=== PATIENT | male | born 1950 | race Caucasian/White ===

== ENCOUNTER 2016-12-23 04:01 | Inpatient (IN) | payer OTHER ==
[2016-12-17 11:34] LABS: HEMATOCRIT 42.8 % (42.0-52.0); HEMOGLOBIN 14.4 g/dL (14.0-18.0); MCH 29.6 PG (27-31); MCHC 33.6 g/dL (33-37); MCV 87.9 FL (81-99); MPV 10.2 FL (7.4-10.4); RBC 4.87 XMIL (4.7-6.1)
[2016-12-17 11:53] LABS: AGAP 14; BUN 18 mg/dL (8-22); CALCIUM 10.1 mg/dL (8.8-10.2); CHLORIDE 99 mmol/L (98-107); COSMO 283; POTASSIUM 4.3 mmol/L (3.5-5.1); SODIUM 141 mmol/L (136-145); TCO2 28 mmol/L (25-35)
--- NOTE | 2016-12-17 13:38 | EKG Report ---
Test Performed on : 12/17/2016 11:15:16 AM Test Reason : PAT Blood Pressure : / mmHG Vent. Rate : 076 BPM Atrial Rate : 076 BPM P-R Int : 152 ms QRS Dur : 096 ms QT Int : 396 ms P-R-T Axes : 081 039 062 degrees QTc Int : 445 ms Normal sinus rhythm. Normal ECG No previous ECGs available Confirmed by Crow Qiu MD ([id number]) on 12/17/2016 9:57:10 PM
[2016-12-23] MEDS ORDERED: LR 1,000 ML ONE ×2 (05:27→06:26)
[2016-12-23] MEDS ORDERED: REGLAN ONE (05:27)
[2016-12-23] MEDS ORDERED: PEPCID ONE (05:27)
[2016-12-23] MEDS ORDERED: KEFZOL 2 GM/D5W 50 ML ONE (05:28)
[2016-12-23 08:27] LABS: URINE MICRO REVIEW NEEDED? NO; URINE SOURCE CATH
[2016-12-23 08:31] LABS: BILIRUBIN URINE NEGATIVE (NEGATIVE); BLOOD URINE NEGATIVE (NEGATIVE); COLOR YELLOW; GLUCOSE URINE NEGATIVE (NEGATIVE); LEUKOCYTES URINE NEGATIVE (NEGATIVE); NITRITE URINE NEGATIVE (NEGATIVE); PROTEIN URINE 30 mg/dL (NEGATIVE); SP GRAVITY URINE 1.025; TURBIDITY URINE CLEAR (CLEAR); UROBILINOGEN URINE NORMAL (NORMAL)
[2016-12-23 08:32] LABS: UR EPITHELIAL CELLS <10 /HPF (<10); URINE BACTERIA NEGATIVE /HPF; URINE RBC <10 /HPF (<10); URINE WBC <10 /HPF (<10)
[2016-12-23] MEDS: B & O 16A SUPP ONE ×2 (10:17)
[2016-12-23] MEDS: MARCAINE 0.25% PF/EPI 1:200,000 ONE ×2 (10:17)
[2016-12-23] MEDS ORDERED: NS 1,000 ML ONE (10:36)
[2016-12-23] MEDS ORDERED: DILAUDID ONE (10:46)
[2016-12-23] MEDS ORDERED: FENTANYL ONE (10:49)
[2016-12-23] MEDS ORDERED: DIPRIVAN 1% ONE (10:50)
[2016-12-23] MEDS ORDERED: VERSED ONE (10:50)
[2016-12-23] MEDS ORDERED: LUBRIFRESH PM OPH OINTMENT ONE (10:55)
[2016-12-23] MEDS ORDERED: NEOSTIGMINE ONE (10:55)
[2016-12-23] MEDS ORDERED: EPHEDRINE ONE (10:56)
[2016-12-23] MEDS ORDERED: NORCURON ONE (10:56)
[2016-12-23] MEDS ORDERED: ZOFRAN ONE (10:56)
[2016-12-23] MEDS ORDERED: ROBINUL ONE (10:56)
[2016-12-23] MEDS ORDERED: XYLOCAINE-MPF 2% ONE (10:56)
[2016-12-23] MEDS ORDERED: NEO-SYNEPHRINE ONE (10:56)
[2016-12-23] MEDS ORDERED: SODIUM CHLORIDE 0.9% 50 ML ONE (10:56)
[2016-12-23] MEDS ORDERED: OFIRMEV 1000 MG/ISOTONIC SOLN 100 ML ONE (10:57)
[2016-12-23] MEDS ORDERED: QUELICIN (DOSE) ONE (10:57)
[2016-12-23] MEDS ORDERED: DECADRON ONE (10:58)
[2016-12-23] MEDS ORDERED: LR 2,000 ML ONE (10:58)
[2016-12-23] MEDS ORDERED: BENADRYL IV PRN ×2 (11:53→12:07)
[2016-12-23] MEDS ORDERED: LABETALOL IV PRN ×2 (11:53→12:07)
[2016-12-23] MEDS ORDERED: TYLENOL PO PRN (11:53)
[2016-12-23] MEDS ORDERED: MORPHINE IV PRN ×2 (11:53→12:07)
[2016-12-23] MEDS ORDERED: NORCO-7.5 PO PRN (11:53)
[2016-12-23] MEDS ORDERED: BENADRYL LIQUID PO PRN ×2 (11:53→12:07)
[2016-12-23] MEDS ORDERED: B & O 15A SUPP PR PRN (11:53)
[2016-12-23] MEDS ORDERED: DITROPAN PO PRN ×2 (11:53→12:07)
[2016-12-23] MEDS ORDERED: PHENERGAN PO PRN (12:07)
[2016-12-23] MEDS ORDERED: PHENERGAN IV PRN (12:07)
[2016-12-23] MEDS ORDERED: PHENERGAN PR PRN (12:07)
[2016-12-23] MEDS ORDERED: SODIUM CHLORIDE 0.9% INJ PRN (12:07)
--- NOTE | 2016-12-23 12:36 | OPERATIVE NOTE ---
PROCEDURE DATE: 12/23/2016 PREOPERATIVE DIAGNOSIS: Prostate cancer. POSTOPERATIVE DIAGNOSIS: Prostate cancer. PROCEDURE PERFORMED: Laparoscopic robot-assisted radical retropubic prostatectomy. SURGEON: Herb Jeronimo MD ANESTHESIA: General endotracheal. FINDINGS: Normal-appearing prostate with attached vas deferens and seminal vesicles. INDICATIONS FOR PROCEDURE: This 65-year-old male has a history of elevated PSA. Transrectal prostate ultrasound and biopsies revealed adenocarcinoma, Lori grade 3 + 3, in the right base and mid and left base of the prostate. Various treatments for prostate cancer were discussed with the patient and he decided on radical surgery. DESCRIPTION OF PROCEDURE: After informed consent was obtained from the patient and him receiving IV antibiotics, he was taken to the main OR and placed in low lithotomy position. General endotracheal anesthesia was achieved. He was then prepped and draped in the usual sterile fashion for abdominal, penile, and perineal surgery. An 18-Indonesian Rodríguez catheter was passed through the patient's urethra and prostate into the bladder without difficulty. A total of 10 mL of sterile water was placed in the Rodríguez balloon. The Rodríguez was placed to gravity drain. An incision about 15 mm in length was made right above the umbilicus in the midline. The Veress needle was passed through this incision into the peritoneal cavity. A water drop test was good and pneumoperitoneum was achieved. After 15 cm of water was achieved, the Veress needle was removed and a Visiport was used to place a 12 mm camera port. After the port was placed, a camera was placed and the abdomen was inspected and there were physiologic adhesions of the left sigmoid colon, otherwise no adhesions, the robot trocars were placed in their standard position with the 4th arm just above the anterior superior iliac spine. The assistant director of public works port was placed to the left of the camera in the left epigastric area. The patient was then placed in steep Trendelenburg and the cat and the table lowered as far as it would go. The robot was docked. The procedure was started by taking down the physiologic adhesions. The 4th arm was then used to hold the sigmoid colon cephalad. An incision was made in the peritoneum as it reflected off of the colon. This was taken down to the vas deferens and ampulla of the vas along both sides. The ampulla of the vas was dissected free and incised just at the tip of the seminal vesicles. The seminal vesicle was dissected both bluntly and sharply. The pedicle was taken down with a clip. Denonvilliers fascia was entered in the midline at the base of the prostate just below the ampulla vas deferens. This area was dissected laterally for a short distance on either side. Attention was then turned to the anterior abdominal wall, where an incision was made in the peritoneum medial to the internal inguinal ring. This was taken down into the pelvis to the vas deferens and up onto the anterior abdominal wall. Both sides were accomplished similarly. The umbilical ligaments were taken down with electrocautery. The bladder was bluntly and sharply dissected off the anterior abdominal wall. The fibrofatty tissue off the anterior and lateral sides of the prostate were removed. The endopelvic fascia was entered just lateral to the prostate and the incision was taken up to the puboprostatic ligaments distally and back to the base of the prostate. The levator ani muscles were pushed off the sides of the prostate. The puboprostatic ligament was taken down. Both sides were accomplished similarly. The dorsal vein complex was secured with a 2-0 V-Loc suture, going under the dorsal vein complex, through the eye of the tail of the suture, back under the dorsal vein complex, through the periosteum of the pubis, back under the dorsal vein complex, and then back through the periosteum of the pubis. Attention was then turned to the base of the prostate. The bladder was incised using electrocautery at the base of the prostate and sharply dissected off the base. This was taken down to the urethra. The anterior portion was incised. The Rodríguez catheter was visualized and pulled back. The bladder neck was preserved as much as possible. The posterior bladder neck area was incised using electrocautery, and the remaining portion of the bladder was sharply dissected off the base of the prostate. This was taken down to the previously dissected space at the location of the seminal vesicles and ampulla of the vas deferens. This was entered. The ampulla of the vas and seminal vesicles were then brought up through this incision and the incision was extended laterally to each pedicle. The prostate pedicles were taken down with clips and the prostate was dissected down to the apex of the prostate, staying above the neurovascular bundle on both sides. The dorsal vein complex was cauterized over the apex of the prostate and incised. The urethra was exposed and incised. The Rodríguez catheter was pulled back and the posterior urethra was incised and the remaining fibers of the posterior rhabdosphincter were incised. This completely freed the prostate and it was placed in an EndoCatch retrieval bag. The pelvic area was irrigated. The pneumoperitoneum was dropped to 2 cm of water. No bleeding areas were seen. The vesicovisceral fascia was reattached to the posterior rhabdosphincter using a running suture of 3-0 V-Loc suture. The bladder was anastomosed to the urethra with a running suture of 3 V-Loc suture. At completion, the Rodríguez catheter easily advanced into the bladder and the bladder was distended to 120 mL and irrigated without difficulty. No leaking areas were seen. The previously placed sutures that anastomosed the vesicovisceral fascia to the posterior rhabdosphincter were used on either side. To go through the periosteum to act as a urethral suspension. The needles were removed from the sutures and removed from the body. Needle count was correct. The pneumoperitoneum was resolved and the robot trocars were removed under direct vision after bringing the EndoCatch bag retrieval string through the camera port. The robot was then undocked and the patient was then brought back up to the supine position. The camera port incision was extended for another centimeter. Bovie electrocautery was used to incise the subcutaneous tissue and abdominal rectus fascia. The prostate was brought out of the wound and sent to Pathology. The abdominal rectus fascia was reapproximated with interrupted sutures of #1 Maxon. The skin was reapproximated with clips. The wounds were dressed with island dressings. He tolerated the procedure well. The estimated blood loss was 25 mL. He was taken to the recovery room in good condition, extubated.
[2016-12-23] MEDS: OFIRMEV 1000 MG/ISOTONIC SOLN 100 ML IV SCH ×2 (15:23→21:12)
[2016-12-23] MEDS: NS 1,000 ML IV SCH ×2 (15:24→21:40)
[2016-12-23] MEDS: KEFZOL 1 GM/D5W 50 ML IV SCH ×3 (15:24→23:40)
[2016-12-23] MEDS ORDERED: AMBIEN PO ONE (20:58)
[2016-12-23] MEDS ORDERED: PRAVACHOL PO SCH (21:00)
[2016-12-23] MEDS ORDERED: PERIDEX MT SCH (21:00)
[2016-12-23] MEDS ORDERED: COLACE PO SCH ×2 (21:00)
[2016-12-23] MEDS ORDERED: PEPCID PO SCH (21:00)
[2016-12-24] MEDS ORDERED: OXY IR PO PRN (03:19)
[2016-12-24] MEDS ORDERED: MILK OF MAGNESIA PO ONE (03:19)
[2016-12-24] MEDS: OFIRMEV 1000 MG/ISOTONIC SOLN 100 ML IV SCH (03:25)
[2016-12-24] MEDS: NS 1,000 ML IV SCH (05:43)
[2016-12-24 05:51] LABS: HEMOGLOBIN 12.8 g/dL (14.0-18.0); MCH 29.5 PG (27-31); MCHC 32.8 g/dL (33-37); MCV 89.9 FL (81-99); RBC 4.34 XMIL (4.7-6.1)
[2016-12-24 06:06] LABS: AGAP 12; BUN 16 mg/dL (8-22); CALCIUM 8.9 mg/dL (8.8-10.2); CHLORIDE 100 mmol/L (98-107); COSMO 281; POTASSIUM 4.1 mmol/L (3.5-5.1); SODIUM 140 mmol/L (136-145); TCO2 28 mmol/L (25-35)
[2016-12-24 08:26] VITALS: BP 162/67
[2016-12-24] MEDS ORDERED: MONOPRIL PO SCH (09:00)
== END 2016-12-24 09:10 | disposition home or self-care (01) | DRG 708 ==
LOC: SURHOLD 04:01 → 4N 10:41
PROVIDERS: ADMIT Urology; ATTEND Urology
PROC: 8E0W4CZ Robotic Assisted Procedure of Trunk Region, Percutaneous Endoscopic Approach (ICD-10-PCS; 2016-12-23)
PROC: 0VBQ4ZZ Excision of Bilateral Vas Deferens, Percutaneous Endoscopic Approach (ICD-10-PCS; 2016-12-23)
PROC: 0VT04ZZ Resection of Prostate, Percutaneous Endoscopic Approach (ICD-10-PCS; principal; 2016-12-23 06:55)
PROC: 0VT34ZZ Resection of Bilateral Seminal Vesicles, Percutaneous Endoscopic Approach (ICD-10-PCS; 2016-12-23 06:55)
DX: C61 Malignant neoplasm of prostate (principal); I10 Essential (primary) hypertension; N40.0 Benign prostatic hyperplasia without lower urinary tract symptoms; Z79.899 Other long term (current) drug therapy; Z87.891 Personal history of nicotine dependence
CPT/HCPCS: 80048; 81001; 85027; 86850; 86900; 86901; 88309; 93005; 93010; 94761; J0131; J0330; J0690; J1100; J1170; J2250; J2370; J2405; J3010; J7030; J7120; J2710; S0020

== ENCOUNTER 2019-04-19 10:37 | Inpatient (IN) ==
[2019-04-19] MEDS ORDERED: CARDIZEM IV ONE (10:54)
[2019-04-19 11:32] LABS: BASO# 0.03 X1000 (0.0-0.2); BASO% 0.5 % (0.0-0.8); EOS# 0.06 X1000 (0.0-0.7); HEMATOCRIT 40.9 % (42.0-52.0); HEMOGLOBIN 14.1 g/dL (14.0-18.0); LYMPH# 1.36 X1000 (1.2-3.4); LYMPH% 22.7 % (20.5-51.1); MCHC 34.5 g/dL (33-37); MCV 84.2 FL (81-99); MONO# 0.67 X1000 (0.11-0.59); MONO% 11.2 % (1.7-9.3); MPV 10.6 FL (7.4-10.4); NEUT# 3.88 X1000 (1.4-6.5); NEUT% 64.6 % (42.2-75.2); PLT 190 X1000 (130-400); RBC 4.86 XMIL (4.7-6.1); RDW 13.7 % (11.5-14.5)
[2019-04-19 11:54] LABS: AGAP 11; ALB/GLOB RATIO 1.7; ALBUMIN 4.1 g/dL (3.5-5.0); ALKALINE PHOSPHATASE 58 U/L (32-122); BUN 15 mg/dL (8-22); CALCIUM 9.5 mg/dL (8.8-10.2); CHLORIDE 103 mmol/L (98-107); COSMO 281; ESTIMATED GFR > 60; GLUCOSE 139 mg/dL (70-104); GOT 34 U/L (10-34); GPT 36 U/L (10-44); SODIUM 139 mmol/L (136-145); TCO2 25 mmol/L (25-35); TOTAL BILIRUBIN 0.52 mg/dL (0.20-1.00); TOTAL PROTEIN 6.5 g/dL (6.3-8.3)
[2019-04-19 12:01] LABS: CK PROFILE 264 U/L (24-204)
[2019-04-19 12:29] LABS: CK INDEX 1.7 (0.0-2.5); CK-MB 4.51 ng/mL (0.0-5.0)
[2019-04-19 12:53] LABS: URINE SOURCE CLEAN CATCH
[2019-04-19] MEDS ORDERED: CARDIZEM 125 MG/D5W 125 MG/125 ML IVPB IV SCH (12:55)
--- NOTE | 2019-04-19 12:55 | PROVIDER DOCUMENTATION ---
This chart was entered by Jeannette Miramontes Scribe, acting as scribe for Hodan Mosher MD. HPI-Cardiac General - General Chief Complaint: Palpitations Stated Complaint: HEART RACING Time Seen by Provider: 04/19/19 10:43 Source: patient Allergies/Adverse Reactions: Patient Allergies Allergy/AdvReac Type Severity Reaction Status Date / Time No Known Allergies Allergy Verified 12/09/17 14:02 Home Medications: Home Medication List Medication Instructions Recorded Confirmed Last Taken Type FOSINOpril [Monopril] 40 mg PO BID 12/17/16 04/19/19 04/19/19 08:00 History 40 MG PRAVAstatin [Pravachol] 80 mg PO QHS 01/28/17 04/19/19 04/18/19 21:00 History 80 MG Amiodarone [Cordarone] 200 mg PO BID #60 tab 04/21/19 Unknown Rx Apixaban [Eliquis] 5 mg PO BID #60 tab 04/21/19 Unknown Rx Metoprolol [Lopressor] 100 mg PO BID #60 tab 04/21/19 Unknown Rx - History of Present Illness-Cardiac Nature of Presenting Problem: 68yowm presents ot ED cc racing heart for last 2 days with heart rate staying in the 140's and causing him to be 'jittery' and lightheaded. Pt reports he had this happen a few weeks ago and dial lathe operator added 25mg of Metoprolol and it stopped until 2 days ago. Pt saw dial lathe operator this morning and was told to come to ED for further evaluation. Pt reports he has had 2 oblations in the past and was on blood thinners but was taken off them by dial lathe operator after 1 yr. Pt denies chest pain, recent illness, N/V/D. Pt has hx of AFIB. Pt is A&Ox3 but is a little 'jittery' upon exam. Quality of Pain: reports: none Severity in ED: moderate Onset/Duration: 2 days ago Timing: still present, constant Context/Activities at Onset: reports: light activity Modifying Factors: improves with: nothing Palpitation Quality: fast/pounding heart beat Recent use of:: reports: caffeine Nitro Today/Relief: reports: no nitro taken today Aspirin Treatment Today: reports: no aspirin today Prior Chest Pain/Cardiac Workup: reports: other (2 oblations) Associated Symptoms: reports: denies symptoms Similar Symptoms Previously?: Yes Recently Seen Here or By Another Healthcare Provider: Yes (saw dial lathe operator this am) Review of Systems - Adult - REVIEW OF SYSTEMS - ADULT Constitutional: reports: see HPI. denies: chills, fever, fatique Eyes: reports: no symptoms reported Ears, Nose, Mouth & Throat: reports: no symptoms reported Cardiovascular: reports: see HPI, palpitations. denies: chest pain, edema, heart murmur, syncope Respiratory: reports: see HPI. denies: cough, shortness of breath, wheezing Gastrointestinal: reports: see HPI. denies: diarrhea, nausea, vomiting Genitourinary: reports: no symptoms reported Musculoskeletal: reports: no symptoms reported Integumentary: reports: no symptoms reported Neurological: reports: see HPI, dizziness/vertigo. denies: seizure, syncope Psychiatric: reports: no symptoms reported Endocrine: reports: no symptoms reported Hematologic/Lymphatic: reports: no symptoms reported Allergic/Immunologic: reports: no symptoms reported All Other Systems: Reviewed and Negative Past History - Adult - PAST MEDICAL HISTORY-ADULT Review of Records: reports: Nursing Assessment Review, Medications Reviewed, Social history reviewed & non-contributory. Major Childhood Illnesses: reports: denies history Cardiovascular: reports: A-Fib Respiratory: reports: denies history Gastrointestinal: reports: denies history Obstetrical/Gynecological: reports: denies history Genitourinary: reports: denies history Musculoskeletal: reports: denies history Neurological: reports: denies history Endocrine/Immune: reports: denies history Other Conditions: reports: denies history - IMMUNIZATION STATUS Childhood Immunizations: See Nurse Assessment Flu Vaccine: See Nurse Assessment - FAMILY HISTORY Family History: reviewed, not pertinent - SOCIAL HISTORY Smoking: denies Physical Exam-General - PHYSICAL EXAM-ADULT Initial Vital Signs Reviewed: Yes - CONSTITUTIONAL General Appearance: appears well, alert, no apparent distress. negative: anxious, combative - EYES Eyes: PERRL/EOMI, pink conjunctivae. negative: meningismus, pale conjunctivae, photophobia - HEAD, EARS, NOSE, MOUTH & THROAT HENMT: normocephalic/atraumatic, moist mucous membranes, normal ENT inspection, TMs normal, pharynx normal. negative: angioedema, dental decay, hearing deficit - NECK Neck: non-tender, full range of motion, supple, normal inspection. negative: Brudzinski's sign, carotid bruit, C-spine tenderness - RESPIRATORY Respiratory: chest non-tender, lungs clear, normal breath sounds, no pleuratic chest pain, no respiratory distress. negative: accessory muscle use, crackles, rales, rhonchi, stridor, wheezing - CARDIOVASCULAR Cardiovascular: normal peripheral pulses, no edema, no gallop, no JVD, no murmur , tachycardia. negative: regular rate, rhythm, bradycardia - GASTROINTESTINAL (ABDOMEN) Abdominal Exam: normal bowel sounds, non tender, soft. negative: distended, guarding, rigid, rebound, tenderness - LYMPHATIC Lymphatic: no adenopathy. negative: enlargement, striations, streaking - MUSCULOSKELETAL Back Exam: normal inspection, no CVA tenderness, no vertebral tenderness. negative: swelling Extremity: normal range of motion, non-tender, normal gait, normal inspection, no pedal edema, no calf tenderness. negative: swelling - SKIN Integumentary: normal color, normal turgor, warm/dry. negative: cyanosis, diaphoresis, erythema, jaundice - NEUROLOGIC Neurologic: pump house operator II-XII nml as tested, grossly normal, no motor/sensory deficits. negative: facial droop, focal weakness - PSYCHIATRIC Psych/Mental Status: normal mood/affect, normal thought content, normal thought process, oriented x 3. negative: disoriented x 3, anxious, disheveled, depressed affect - HEART Score HEART Score: History: Moderately Suspicious HEART Score: ECG: Non-Specific Repolarization Disturbance/LBBB/PM HEART Score: Age: > or = 65 Years HEART Score: Risk Factors for Atherosclerotic Disease: 1 or 2 Risk Factors HEART Score: Troponin: < or = Normal Limit Total HEART Score:: 5 Progress - PLAN OF CARE/RESULTS Progress/Plan/Lab Results: Orders Category Date Time Status Admit - [facility] Routine AdmDCTranf 04/19/19 14:00 Active Saline Loc DIRECTED Care 04/19/19 10:53 Completed CBC WITH ELECTRONIC DIFF [HEME] Stat Lab 04/19/19 11:15 Completed CK PROFILE [SP CHEM] Stat Lab 04/19/19 11:15 Completed COMPREHENSIVE METABOLIC PANEL [CHEM] Stat Lab 04/19/19 11:15 Completed TROPONIN T Stat Lab 04/19/19 11:15 Completed URINALYSIS W/POSS RFLX CULT [URINALYSIS] Stat Lab 04/19/19 12:43 Completed Diltiazem 125 mg/D5w [Cardizem 125 mg/D5w] Med 04/19/19 12:55 Discontinued 125 mg in 125 ml IV As Directed mls/hr Diltiazem [Cardizem] Med 04/19/19 10:54 Discontinued 20 mg IV NOW ONE EKG [EKG] Stat Ther 04/19/19 10:43 Draft Transfer/Admit Order [TRANSFER] Routine Transfer 04/19/19 14:01 Completed Result Diagrams: 04/19/19 11:15 04/21/19 05:48 - REASSESSMENT Reassessment #1 Time Reassessed: 12:00 Status: improving Reassessment #2 Time Reassessed: 12:52 Status: improving Reassessment Comment: HR 90 - 120 RANGE, WILL START CARDIZEM DRIP. D/W PT. - EKG 1 Time of EKG reading by physician:: 10:56 EKG Read and Signed by:: Hodan Mosher EKG Interpretation (*Must complete 3 of following elements*): Abnormal (consider inferior ischemia consider anterolateral ischemia) Rate: 153 Rhythm: sius tachycardia Sinking [place]: normal ST Wave: non-specific ST changes Prior EKG Comparison: no prior EKG - CONSULTS/PCP/HOSPITALIST Notification #1 *Consult/PCP/Hospitalist*: Dr. Husain/Dr. Morel Time Discussed: 12:55 Consult Disposition: other (call Dr. Christopher Knott) Departure - Departure Date of Disposition Decision: 04/19/19 Time of Disposition Decision: 14:26 DIAGNOSIS: Atrial fibrillation with RVR Disposition: ADMITTED INPATIENT 09 Certified Medical Emergency: Emergent Condition: Stable - Critical Care Note This patient required my direct & personal management of CC.: Yes Total Time (mins): 50 Critical Care Statement: This patient required my direct personal management to treat or rule out processes, the absence of which, could potentiallly result in sudden, clinically significant life or limb threatening deterioration. Attestation - Physician/ ROLAN Attestation Patient care was provided by Advanced Practice Provider:: No The physician spent face to face time with patient:: Yes Advanced Practice Provider documentation review:: Supervising physician onsite and consulted in the evaluation and care of this patient. The physician did have a face to face encounter with the patient. This chart was documented by the indicated scribe, (Jeannette Miramontes, Johann) and accurately reflects the services I performed and decisions made by me, Hodan Mosher MD, as attested by the provider's signature.
[2019-04-19 12:58] LABS: BILIRUBIN URINE NEGATIVE (NEGATIVE); BLOOD URINE NEGATIVE (NEGATIVE); COLOR YELLOW; GLUCOSE URINE NEGATIVE (NEGATIVE); KETONE URINE NEGATIVE (NEGATIVE); LEUKOCYTES URINE NEGATIVE (NEGATIVE); NITRITE URINE NEGATIVE (NEGATIVE); PH URINE 6.5; PROTEIN URINE NEGATIVE (NEGATIVE); SP GRAVITY URINE 1.006; TURBIDITY URINE CLEAR (CLEAR); UROBILINOGEN URINE NORMAL (NORMAL)
[2019-04-19 12:59] LABS: UR EPITHELIAL CELLS <10 /HPF (<10); URINE BACTERIA NEGATIVE /HPF; URINE RBC <10 /HPF (<10); URINE WBC <10 /HPF (<10)
--- NOTE | 2019-04-19 14:12 | EKG Report ---
Test Performed on : 04/19/2019 10:43:40 AM Test Reason : ED. No order in [place] Blood Pressure : / mmHG Vent. Rate : 153 BPM Atrial Rate : 159 BPM P-R Int : 166 ms QRS Dur : 100 ms QT Int : 308 ms P-R-T Axes : 055 029 236 degrees QTc Int : [address] & T wave abnormality, consider inferior ischemia ST & T wave abnormality, consider anterolateral ischemia Abnormal ECG When compared with ECG of 10-DEC-2017 12:50, Vent. rate has increased BY 97 BPM Unconfirmed Result
[2019-04-19] MEDS ORDERED: TYLENOL PO PRN (17:53)
--- NOTE | 2019-04-19 18:59 | HISTORY AND PHYSICAL ---
CHIEF COMPLAINT: Heart running away. PRESENT ILLNESS: The patient is a 68-year-old white male, with a history of atrial fibrillation, who started having some tachycardia a couple of weeks ago. He regulated his metoprolol on his own and seemed to get better. It has since started getting fast again and he went to his plate drying machine tender's office without an appointment. They recommended that he come over to the emergency room and be admitted. The patient had a heart rate of 159 beats per minute, and he was in atrial fibrillation with a rapid ventricular response. He has had 2 ablations in the past. MEDICATIONS AT HOME: Include: 1. Fosinopril 40 mg p.o. b.i.d. 2. Eliquis 5 mg p.o. b.i.d. 3. Pravastatin 80 mg at bedtime. 4. Amiodarone 200 mg p.o. b.i.d. 5. Furosemide 40 mg every other day. 6. Metoprolol 50 mg p.o. b.i.d. PAST HISTORY: Includes: 1. Hyperlipidemia. 2. Intermittent atrial fibrillation. 3. Prostate cancer. 4. Hypertension. 5. Hypothyroidism. 6. Varicose veins. 7. History of tremor. 8. Chronically elevated liver function tests. 9. Mild proteinuria. 10. The patient has had cataracts and has had surgery. 11. He had prostate surgery in 2016. 12. He had a hernia repair. FAMILY HISTORY: Includes sister, daughter, and brother alive and in good health. are his mother and father who of natural causes. His mother did have hypertension and his father did have cancer. SOCIAL HISTORY: He is a former smoker, former drinker, but has not drank alcohol or had tobacco since 1998. REVIEW OF SYSTEMS: Neurological: Denies seizures, visual problems, hearing problems, but has had some dizziness. Pulmonary: Denies cough, wheezing, dyspnea. Cardiovascular: Has had heart palpitations with a little dizziness. No real chest pain. GI: Denies hematochezia, hematemesis, melena, constipation, diarrhea. : Denies any difficulty with urination other than what was expected after prostate cancer. He has had no changes. Endocrine: Has had no diabetes or thyroid problems. No pituitary problems. PHYSICAL EXAMINATION: VITAL SIGNS: Pulse rate after starting Cardizem drip of 127 beats per minute, up to 143 beats per minute, blood pressure 126/86, respirations 15, temperature 97.7 degrees Fahrenheit. HEENT: Normocephalic. EOMs intact. PERRLA. Throat clear. LUNGS: Clear to auscultation and percussion without rhonchi, rales, or wheezes. HEART: Irregularly irregular and tachycardic without murmurs, gallops, or friction rubs. ABDOMEN: Soft. Active bowel sounds. No organomegaly or tenderness. GENITALIA/RECTAL: External genitalia and rectal exams are deferred. INTEGUMENT: Shows no lesions consistent with melanoma or other skin cancers. LYMPH NODES: Not palpable in the cervical and supraclavicular areas. Patient does get a little dependent edema at times and takes Lasix every other day. Does not have any edema right now. NEUROLOGICAL: Cranial nerves 2 through 12 intact grossly. sensory and motor intact. Reflexes 1+ all. ASSESSMENT: 1. Atrial fibrillation, with rapid ventricular response. 2. Hypertension. 3. History of prostate cancer. 4. Dependent edema. PLAN: Continue the Cardizem drip until we get him under control, and then regulate his metoprolol. Will consult Cardiology. cc: Christopher Knott Jr, MD
[2019-04-19 19:36] LABS: T4 7.48 ug/dL (4.60-12.00); TSH 3.41 uIUmL (0.27-4.20)
[2019-04-19] MEDS: PRAVACHOL PO SCH (20:40)
[2019-04-19] MEDS: CORDARONE PO SCH (20:40)
[2019-04-19] MEDS ORDERED: LOPRESSOR PO SCH (21:00)
[2019-04-20] MEDS: CARDIZEM 125 MG/D5W 125 MG/125 ML IVPB IV SCH (05:46)
[2019-04-20 05:59] LABS: AGAP 10; BUN 13 mg/dL (8-22); CALCIUM 9.1 mg/dL (8.8-10.2); CHLORIDE 104 mmol/L (98-107); COSMO 285; CREATININE 1.1 mg/dL (0.7-1.2); ESTIMATED GFR > 60; GLUCOSE 104 mg/dL (70-104); POTASSIUM 4.7 mmol/L (3.5-5.1); SODIUM 143 mmol/L (136-145); TCO2 29 mmol/L (25-35)
[2019-04-20] MEDS: ELIQUIS PO SCH ×2 (08:32→20:29)
[2019-04-20] MEDS: CORDARONE PO SCH ×2 (08:32→20:29)
[2019-04-20] MEDS: LOPRESSOR PO SCH ×2 (08:33→20:29)
--- NOTE | 2019-04-20 08:42 | PROGRESS NOTE ---
DATE: 04/20/2019 SUBJECTIVE: Patient is feeling better. Heart rate did get down into the 60s and 70s last night, but is back up over 100 this morning. Still on a Cardizem drip. He is still in atrial fibrillation with rapid ventricular response. He is not having symptoms at this time. The patient had been taken off of his Eliquis by his funeral counselor and I think that since he is in atrial fibrillation we should reinstitute this medication at 5 mg p.o. b.i.d. OBJECTIVE: Blood pressure is 108/61 respirations 15 pulse 76, temperature 97.6 degrees Fahrenheit.HEENT: Normocephalic. EOMS intact. PERRLA. Throat clear. Lungs: Clear to auscultation and percussion without rhonchi, rales, or wheezes. Heart: Irregularly irregular without murmurs, gallops, friction rubs. He is tachycardic with a pulse of 107 on the monitor now even though the nurses earlier this morning had checked it and it was lower. Abdomen: Soft with active bowel sounds. No organomegaly or tenderness. Neurological: Intact grossly. Reflexes 1+ all. ASSESSMENT: Recurrence of atrial fibrillation with rapid ventricular response. The patient states he does not want another cardioversion, he has had 4 of them. He has had an ablation in the past as well. We will try to control rate and now he is on a Cardizem drip. Will increase his metoprolol to 100 mg p.o. b.i.d. We will have to watch blood pressure closely. He is on amiodarone. Restart Eliquis. We will taper his Cardizem drip as we can. I have consulted Cardiology. cc: Christopher Knott Jr, MD
--- NOTE | 2019-04-20 12:32 | EKG Report ---
Test Performed on : 04/20/2019 12:24:41 PM Test Reason : afib Blood Pressure : / mmHG Vent. Rate : 101 BPM Atrial Rate : 107 BPM P-R Int : 000 ms QRS Dur : 100 ms QT Int : 358 ms P-R-T Axes : 000 016 247 degrees QTc Int : 464 ms Atrial fibrillation. with rapid ventricular response. ST & T wave abnormality, consider inferolateral ischemia Abnormal ECG When compared with ECG of 19-APR-2019 10:43, (Unconfirmed) Atrial fibrillation. has replaced Sinus rhythm. Vent. rate has decreased BY 52 BPM Confirmed by rCow Qiu MD ([id number]) on 04/20/2019 9:34:46 PM
--- NOTE | 2019-04-20 14:36 | CARDIOLOGY CONSULTATION ---
DATE: 04/20/2019 REASON FOR CONSULTATION: Palpitations, irregular heartbeat. HISTORY: Mr. Brown is a pleasant, 68-year-old male who is known to me. He presented to the emergency room department yesterday, April 19, after contacting my office and Dr. Knott's office regarding the recurrence of palpitations and rapid heartbeat that had been going on for several days prior to admission. The patient states that typically he is able to somehow manipulate his heart rate by upgrading his doses of metoprolol from 50 to 75 mg twice a day and with that usually he gets quick results. This time it did not work and he ended up presenting to the ER. His heart rate at the time of presentation was 153 beats a minute with a nonspecific ST abnormality. The patient, therefore, was put on IV Cardizem, given amiodarone by mouth, and has been admitted to the hospital for observation. At this time, he is feeling better. His heart rate is better controlled. However, he is still in persistent atrial fibrillation. PAST MEDICAL HISTORY: Positive for prior diagnosis of paroxysmal atrial fibrillation as well as paroxysmal atrial flutter. He has had ablation of the atrial fibrillation in October 2017 (pulmonary venous isolation) and then ablation of the atrial flutter in 2017. He has had a total of 4 cardioversions during his last time. He does not like them very much because he feels shaky afterwards. He does have history of hypertension. He has a history of hyperlipidemia. He has had prostate cancer. We gave him a stress test back in January of 2017 that came back normal. He has no previous diagnosis of coronary heart disease. PAST SURGICAL HISTORY: He has had cataract surgery, prostate surgery, hernia repair. SOCIAL HISTORY: He is single. He is retired. He has one grown up child. FAMILY HISTORY: Mother suffered sudden at age 68. REVIEW OF SYSTEMS: He has been actually pretty active, walking about 3 miles a day 5 days a week without limitations up until the onset of these symptoms about 5 days ago. HOME MEDICATIONS: Listed at the time of this admission included metoprolol 50 twice a day, pravastatin 80 at bedtime, and fosinopril 40 twice a day. He has not been taking amiodarone; that was just started here in the hospital. He was also not taking Eliquis and we have put him back on it because of the increased risk for stroke. PHYSICAL EXAMINATION: Vital signs: Blood pressure 112/63, pulse 62, temperature 97.5 degrees, respirations 18. General: He is awake, alert, oriented, in no distress. HEENT: Unremarkable. Chest: Clear to auscultation and percussion. Heart: Sounds are irregularly irregular. Abdomen: Soft, nontender. No masses. No hepatomegaly. Extremities: Showed good pulses. No peripheral edema. Neurological: Nonfocal. Moves 4 extremities. BLOOD WORK: Sodium is 143, potassium 4.7, BUN 13, creatinine 1.1. CPK 264. Troponin less than 0.010. TSH 3.41 micro international units per mL, T4 7.48 ng/mL. As I said, his other tests were unremarkable. IMPRESSIONS: 1. Patient who presents with paroxysmal atrial fibrillation, rapid response, symptomatic. 2. History of hypertension. 3. History of hyperlipidemia. 4. S/P Pulmonary venous isolation, October 2017 and Atrial flutter Ablation January 2018. RECOMMENDATION: At this time, we will pursue a conservative approach to his case. He may be able to convert on his own. If he does not, then I would suggest to pursue ARACELI- guided cardioversion. The reason for ARACELI would be because he has not been taking anticoagulants for several months. I explained this to him. He is in agreement. We will see how his rhythm looks in the morning and then we will take it from there. He needs life time anticoagulation. Thank you again for the opportunity to participate in his evaluation. cc: MD Christopher Burger Jr, MD MTDD
[2019-04-20] MEDS: PRAVACHOL PO SCH (20:29)
[2019-04-21] MEDS: LOPRESSOR PO SCH ×2 (07:00→08:08)
[2019-04-21] MEDS: CORDARONE PO SCH ×2 (07:00→08:08)
[2019-04-21] MEDS: ELIQUIS PO SCH ×2 (07:00→08:08)
--- NOTE | 2019-04-21 08:06 | DISCHARGE SUMMARY ---
ADMISSION DATE: 04/19/2019 DISCHARGE DATE: 04/21/2019 FINAL DIAGNOSES: 1. Recurrence of atrial fibrillation with rapid ventricular response. 2. Hypertension. 3. Hyperlipidemia. HOSPITAL COURSE: The patient came into the hospital with tachycardia. He had gone back into atrial fibrillation. He had a heart rate of 159 beats per minute. He was placed on a Cardizem drip in the hospital. This has come down. Vital signs are much better. He is still in atrial fibrillation. Consultation was done with Cardiology. Patient is now back on amiodarone 200 mg p.o. b.i.d., metoprolol 100 mg p.o. b.i.d., and Eliquis 5 mg p.o. b.i.d. He is on his other medications as well. The patient really does not want cardioversion at this time. He has had it 4 times previously. PHYSICAL EXAMINATION: Vital Signs: Stable. HEENT: He is normocephalic. EOMs intact, TMs WNL, and throat clear. Lungs: Clear to auscultation and percussion without rhonchi, rales, or wheezes. Heart: Irregularly irregular without murmurs, gallops, or friction rubs. Heart rates in the 70s. Abdomen: Soft. Active bowel sounds. No organomegaly or tenderness. Neurological: Cranial nerves 2-12 intact grossly. Sensory and motor intact. Reflexes 1+ all. DISPOSITION: We will discharge from the hospital. Follow up next week in the office. Dr. Suh of Cardiology did see the patient. He will also follow up with him. cc: MD ARAVIND Hernández Jr
--- NOTE | 2019-04-21 08:06 | EKG Report ---
Test Performed on : 04/21/2019 06:13:06 AM Test Reason : afib Blood Pressure : / mmHG Vent. Rate : 083 BPM Atrial Rate : 300 BPM P-R Int : 000 ms QRS Dur : 100 ms QT Int : 392 ms P-R-T Axes : 090 067 251 degrees QTc Int : 460 ms Atrial flutter. with variable AV block. Incomplete right bundle branch block Marked ST abnormality, possible inferior subendocardial injury Abnormal ECG When compared with ECG of 20-APR-2019 12:24, Atrial flutter. has replaced Atrial fibrillation. Incomplete right bundle branch block is now present Confirmed by Crow Qiu MD ([id number]) on 04/21/2019 6:02:03 PM
[2019-04-21] MEDS: CARDIZEM 125 MG/D5W 125 MG/125 ML IVPB IV SCH (08:13)
[2019-04-21 08:47] LABS: CALCIUM 10.3 mg/dL (8.8-10.2); CREATININE 1.3 mg/dL (0.7-1.2)
[2019-04-21 08:53] LABS: POTASSIUM 5.2 mmol/L (3.5-5.1)
[2019-04-21 09:22] LABS: INR 1.16; PROTIME 15.7 Seconds (11.0-16.0)
[2019-04-21 09:23] LABS: PTT 35.4 Seconds (22.3-41.8)
[2019-04-21] MEDS ORDERED: NS 1,000 ML ONE (10:07)
[2019-04-21] MEDS ORDERED: ANESTHESIA PB SET 88 IN 5742 ONE (10:07)
[2019-04-21] MEDS ORDERED: XYLOCAINE 2% VISCOUS ONE (10:08)
[2019-04-21] MEDS ORDERED: DIPRIVAN 1% ONE (10:16)
[2019-04-21] MEDS ORDERED: XYLOCAINE-MPF 1% 5 ML ONE (10:17)
--- NOTE | 2019-04-21 11:29 | EKG Report ---
Test Performed on : 04/21/2019 11:22:37 AM Test Reason : post ARACELI/CVN Blood Pressure : / mmHG Vent. Rate : 045 BPM Atrial Rate : 045 BPM P-R Int : 146 ms QRS Dur : 110 ms QT Int : 490 ms P-R-T Axes : 085 040 212 degrees QTc Int : [address] & T wave abnormality, consider inferolateral ischemia Abnormal ECG When compared with ECG of 21-APR-2019 06:13, (Unconfirmed) Sinus rhythm. has replaced Atrial flutter. Vent. rate has decreased BY [address] less depressed in Inferior leads Confirmed by Crow Qiu MD ([id number]) on 04/21/2019 6:13:01 PM
--- NOTE | 2019-04-21 12:15 | CARDIAC CATH REPORT ---
PROCEDURE NAME: - INDICATION: Atrial fibrillation. PROCEDURE PERFORMED: Direct current cardioversion. PROCEDURE IN DETAIL: Mr. Brown was brought to the catheterization laboratory in fasting state. Informed consent was obtained. After a ARACELI was performed, he was ensured to be adequately sedated. One shock was delivered at 150 J and converted him to sinus rhythm. The patient tolerated the procedure well without any complications. cc: MD Christopher Garcia Jr, MD
[2019-04-21 12:31] VITALS: BP 122/71
--- NOTE | 2019-04-21 13:12 | Transesophageal Echocardiogram ---
DATE: 04/21/2019 INDICATION FOR THE PROCEDURE: Atrial fib. Evaluate prior to cardioversion. PROCEDURE IN DETAIL: Mr. Brown was brought to the catheterization laboratory in fasting state. Informed consent was obtained. He was prepped in usual fashion including Hurricaine spray. He was sedated with propofol. After adequate sedation, ARACELI probe was passed without difficulty. Images were obtained in multiple planes. No apparent complications. The probe was removed without difficulty at the conclusion of the procedure. FINDINGS: 1. The right atrium appears normal in size. 2. Trace tricuspid regurgitation was identified. 3. Right ventricle was somewhat difficult to visualize, but appeared to be normal in size. 4. Pulmonic valve was difficult to visualize, but there is no clear evidence of significant pulmonic insufficiency or abnormalities. 5. Left atrium is moderately enlarged. There is no evidence of organized clot in the left atrium or left atrial appendage. There was some smoke indicative of low-flow state. The pulse wave velocity was less than 40 cm/sec. Again, no clot was visualized in the left atrial appendage. 6. No mitral valve prolapse. Mild mitral regurgitation. 7. The left ventricle appears to be normal in size. The patient is currently in atrial fibrillation at a rapid rate. The LV function appears moderately reduced. I would recommend repetition of the study when the patient is in sinus rhythm. 8. Aortic valve opens well. It is trileaflet. No evidence of stenosis or insufficiency. 9. Aorta had mild atherosclerotic plaque in the descending thoracic aorta. 10. No pericardial effusion seen. 11. There is no evidence of shunting across the interatrial septum with injection of agitated saline contrast or color Doppler evaluation. cc: MD Jonh Garcia MD Roger H. Moss Jr, MD
== END 2019-04-21 13:40 | disposition home or self-care (01) | DRG 309 ==
LOC: ED 10:37 → 3S 14:16
PROVIDERS: ADMIT Emergency Medicine; ATTEND Emergency Medicine
CPT/HCPCS: 80048; 80053; 81001; 82550; 82553; 84436; 84443; 84480; 84484; 85025; 85610; 85730; 92960; 93005; 93010; 93312; 96365; 96366; 96375; 99285; 99291; A9270; J7030